=== PATIENT | female | born 1950 | race American Indian/Alaskan Native ===

== ENCOUNTER 2020-02-13 18:33 | Emergency (ER) | payer MEDICARE ==
--- NOTE | 2020-02-13 19:09 | Event Note ---
ED Screening Note ED Screening Note: went to [facility] for labs states her doctor is john mann states that she took potassium tablets and ate bananas no issues with urination, good urine output no n/v/d no abd pain no CP no SOB no muscle cramping PMHx CKD, interstitial lung disease, CHF This initial assessment/diagnostic orders/clinical plan/treatment(s) is/are subject to change based on patients health status, clinical progression and re- assessment by fellow clinical providers in the ED. Further treatment and workup at subsequent clinical providers discretion. Patient/guardian urged not to elope from the ED as their condition may be serious if not clinically assessed and managed. Initial orders include: labs, EKG
[2020-02-13 19:37] LABS: Basophils % (Auto) 0.6 % (0.0-1.8); Eosinophils # (Auto) 0.1 K/mm3 (0.0-0.4); Hematocrit 40.4 % (30.3-42.9); Hemoglobin 13.5 gm/dl (10.1-14.3); Lymphocytes # (Auto) 1.6 K/mm3 (1.2-5.4); Lymphocytes % (Auto) 22.9 % (13.4-35.0); Mean Corpuscular HGB Conc 33 % (30-34); Mean Corpuscular Volume 88 fl (79-97); Monocytes # (Auto) 0.5 K/mm3 (0.0-0.8); Monocytes % (Auto) 7.5 % (0.0-7.3); Platelet Count 196 K/mm3 (140-440); Red Blood Count 4.56 M/mm3 (3.65-5.03)
[2020-02-13 19:58] LABS: Albumin 3.7 g/dL (3.9-5); Calcium 9.7 mg/dL (8.4-10.2)
[2020-02-13] MEDS ORDERED: SODIUM CHLORIDE 0.9% 500 ML 500 ML IV ONE (21:23)
[2020-02-13] MEDS ORDERED: POTASSIUM CHLORIDE ER 20 MEQ TAB PO ONE (21:23)
--- NOTE | 2020-02-13 22:08 | Emergency Department Report ---
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 Patient had blood drawn 2 days ago during routine outpatient cardiology visit and received a call today that her potassium was 2.6. Her doctor called in a prescription for potassium 10 mEq and took 2 tabs today and ate 1 banana prior to arrival. Patient states she had some generalized weakness earlier today that has since improved. Patient does not have a medication list with her but states she remembers that she is on torsemide, metoprolol (only if sbp > 110), hydroxychloroquine, prednisone daily 2.5 mg, iron tablets, and vitamins. Patient denies previous history of hypokalemia and and has not been taking potassium on a regular basis until it was prescribed today. Patient was advised to come to the ER for IV potassium patient's cutting machine offbearer Dr. Mayuri Coughlin Patient does not have a previous medical record available here for review but states her last known EF was in the 30s pt states her sbp is typically in the 90's to 110 range. - Related Data Allergies Allergy/AdvReac Type Severity Reaction Status Date / Time No Known Allergies Allergy Unverified 02/13/20 18:42 ED Review of Systems ROS: Stated complaint: DOC ORDERED/LOW POTASSIUM Other details as noted in HPI Comment: All other systems reviewed and negative ED Past Medical Hx - Past Medical History Previous Medical History?: Yes Hx Congestive Heart Failure: Yes Hx Renal Disease: Yes Additional medical history: Mixed Connective Tissue Disease - Surgical History Past Surgical History?: No - Social History Smoking Status: Never Smoker Substance Use Type: None ED Physical Exam - General Limitations: No Limitations - Other Other exam information: General: No acute distress Head: Atraumatic Eyes: normal appearance ENT: Moist mucous membranes Neck: Normal appearance, no midline tenderness Chest: Clear to auscultation bilaterally CV: Regular rate and rhythm Abdomen: Soft, normal bowel sounds, nontender, nondistended, no rebound or guarding Back: Normal inspection Extremity: Normal inspection, full range of motion Neuro: Alert O x 3, no facial asymmetry, speech clear, no gross motor sensory deficit Psych: Appropriate behavior Skin: No rash ED Course Vital Signs 02/13/20 02/13/20 02/13/20 18:40 19:06 21:14 Temperature 97.9 F 97.9 F Pulse Rate 94 H 94 H Respiratory 16 18 16 Rate Blood Pressure 91/67 Blood Pressure 91/67 [Right] O2 Sat by Pulse 99 99 99 Oximetry 02/13/20 02/13/20 02/13/20 22:50 22:56 23:00 Temperature Pulse Rate 85 82 82 Respiratory 16 15 18 Rate Blood Pressure 84/46 84/46 84/46 Blood Pressure [Right] O2 Sat by Pulse Oximetry 02/13/20 02/13/20 02/13/20 23:06 23:10 23:15 Temperature Pulse Rate 90 89 79 Respiratory 18 16 18 Rate Blood Pressure 76/45 92/51 Blood Pressure [Right] O2 Sat by Pulse Oximetry 02/13/20 02/13/20 02/13/20 23:21 23:25 23:29 Temperature Pulse Rate 90 85 Respiratory 12 15 18 Rate Blood Pressure 76/45 76/45 Blood Pressure 92/51 [Right] O2 Sat by Pulse 99 Oximetry - Consultations Consultation #1: 02/13/20 22:17 case d/w construction sales representative card MD Dr Hooker, agree with a small volume of IVF given mild hyponatermia. PO kcl rec (IV not needed at this time) rec a minimal of 20meq daily. f/u or call office on Sunday ED Recheck MDM - Medical Decision Making ekg pvc's, nonspecific IVCD with LAD Patient's repeat potassium is 3.3. Patient received p.o. potassium 40 mEq in the ED. Mild borderline hypotension noted with patient runs low with a systolic between 90s and 110 at baseline. Patient had mild hyponatremia hypochloremia. A total of 1 L normal saline provided with BP improvement to 99/21 prior to discharge. Patient denies feeling lightheaded, dizzy, or shortness of breath. Patient will be discharged to continue po kcl. Patient said Dr. Coughlin called in a higher dose of potassium and is currently waiting at the pharmacy to be picked up. Patient encouraged to sweet pickle maker her medication start her potassium doses later today. Critical Care Time: No Critical care attestation.: If time is entered above; I have spent that time in minutes in the direct care of this critically ill patient, excluding procedure time. ED Disposition Clinical Impression: Hypokalemia, termination clerk current use of diuretic, Dehydration, Hx of chronic heart failure Disposition: -01 TO HOME OR SELFCARE Is pt being admited?: No Does the pt Need Aspirin: No Condition: Stable Instructions: Hypokalemia (ED) Additional Instructions: Take your potassium as prescribed by your cutting machine offbearer. Follow-up with your ca rdiologist on Sunday or early next week. Return if symptoms worsen as indicated by your discharge instructions. Referrals: SUE COUGHLIN MD [Staff Physician] - 02/16/20 (follow up with your doctor on sunday. Call office first.) Time of Disposition: 01:10
[2020-02-14] MEDS ORDERED: SODIUM CHLORIDE 0.9% 500 ML 500 ML IV ONE (00:11)
[2020-02-14 01:11] VITALS: BP 99/21
== END 2020-02-14 01:50 | disposition home or self-care (01) ==
LOC: ED 18:33
DX: E87.6 Hypokalemia (principal); E86.0 Dehydration; I50.9 Heart failure, unspecified; Z79.899 Other long term (current) drug therapy; Z87.448 Personal history of other diseases of urinary system
CPT/HCPCS: 36415; 80053; 83735; 84100; 85025; 99284; J7040